=== PATIENT | male | born 1955 | race Caucasian/White ===

== ENCOUNTER 2017-08-15 19:37 | Emergency (ER) | payer BC ==
[~2017-08-15] VITALS: Ht 188 cm; Wt 102.1 kg
--- NOTE | 2017-08-15 21:05 | [facility]gent [facility] Report ---
History of Present Issue Date/Time Seen by Provider 08/15/172104 Visit Reason Pt arrived:Walked Presenting Problem:COUGH, CONGESTION BEGAN LAST NIGHT, STATES HE HAS BRONCHITIS Location if Accident: Onset of symptoms date/time:/ or onset unknown for:MEDICAL HX UNKNOWN Have you (or family members/close friends) recently traveled outside the [place]? N If Yes, where/when: Have you had exposure to infectious disease within the past month? TB? Other? Specify: Patient state that he has been complaining of cough, congestion, sinus pain and pressure State that he ususally gets bronchitis every year State that this feels more like the beginging of the bronchitis or sinus infection State that he feels tender in his sinuses and feels like they area draining down the back of his throat and got his throat sore and irritated State that he has a dry cough and having body aches Denies fever ALLERGIES Coded Allergies: No Known Allergies (08/15/17) History Medical History General CAD? No Angina: No LA: No Hypertension? No Hyperlipidemia? Yes CHF? No DVT? No PE? No COPD? No Asthma? No Anemia? No CVA? Yes UTI? No Stones? No BPH? No GB Disease: No MRSA? No HIV? No TB? No Immunization HX DT/Tetanus Unknown Surgical Hx Previous Surgery?N Social History Smoking Hx Smoker: Never Smoker Tobacco: No Alcohol Alcohol: No Review of Systems All Other Systems Reviewed and Negative Constitutional chills, denies fever ENT nose congestion, throat pain. denies: ear pain. Respiratory cough, denies shortness of breath, denies wheezing Cardiovascular denies no symptoms reported Musculoskeletal other (body aches) Psychiatric/Neurological headache Physical Exam Vital Signs Vital Signs Date Time Temp Pulse Resp B/P Pulse O2 O2 Flow FiO2 Ox Delivery Rate 08/15 2023 98.0 74 20 167/78 95 General Appearance normal appearance, WD/WN, no apparent distress Ear, Nose, Throat sinus pain/drainage, nasal congestion, Throat red, irritated drainage noted in back of throat, tenderness noted maxillary sinuses Respiratory Status Yes: trachea midline, chest symmetrical, non tender chest. No: respiratory distress. Cardiovascular normal exam, regular rate/rhythm, no peripheral edema Neurologic alert, normal exam, oriented x 3 Medical Decision Making LABS/Meds/Orders Pt receiving controlled substance in ED? No Results/Orders Current Medication Orders Sig/Cameron Start time Last Medication Dose Route Stop Time Status Admin Azithromycin 500 MG ONCE ONE 08/15 2115 DC PO 08/15 2116 Prednisone 20 MG ONCE ONE 08/15 2115 DC PO 08/15 2116 Departure Departure Time of Disposition 2114 Disposition DC Home or Self Care(routine) Clinical Impression Primary Impression: Upper respiratory infection Qualifiers: URI type: unspecified URI Qualified Code: J06.9 - Acute upper respiratory infection, unspecified Condition STABLE Referrals Devendra BOWEN,Chip (Family): 3 Days-Call Office if no improvement Patient Instructions DI for Sinus Headache, DI for Sinusitis, Sinus Headache, Sore Throat Additional Instructions * Monitor Temp. Tylenol and/or Ibuprofen as needed. ER if fever is no less than 101 despite alternating Tylenol and Ibuprofen * Encourage fluids, water, Gatorade, powerade, pedialyte if infant/toddler/or child * Warm salt water gargles for throat irritation *Warm fluids *Sore throat lozenges *Sleep elevated *humidifier or vaporizer Lots of rest Increase fluids, water, Gatorade, powerade *Flonase 2 sprays each nostril daily but may take 2-3 days to notice improvement with it *Bromfed may cause drowsiness. Know how it effect you or your child. Before driving, caring for small children or sending your child to school *Your throat swab was sent to lab for culture. Those results area typically sent to your primary care physician. Be sure to follow up in 2-3 days if no improvement so they can review those results and treat if necessary If you dont have primary care I recommend you get one, but in the mean time you will have to return to a walk in clinic Follow up IMMEDIATELY for new or worsening of symptoms OR no noticeable improvement over the next 48-72 hours. 911 immediately for any life threatening symptoms such as chest pain or difficulty breathing Discharge Counseling Counseled pt/family regarding diagnosis, medications/RX, home care, follow up needs Prescriptions Current Visit Scripts Azithromycin (Zithromycin (Z-CARRIE) 250MG Tab) 250 MG PO DAILY #6 TAB TAKE TWO (2) TABLETS ON DAY 1, THEN ONE (1) TABLET DAY #2 THRU #5 Benzonatate (Tessalon Perle) 100 MG PO TID #15 SGL Prednisone (Prednisone 20MG) 20 MG PO BID #10 TAB Fluticasone Propionate (Flonase 50 Mcg Nasal [place]) 2 SPRAY NA DAILY #1 BOT Albuterol Sulfate (Proair Hfa) 2 PUFFS IH QID #1 INH at 2120
[2017-08-15] MEDS ORDERED: TESSALON PERLE100 M1 PO (21:20)
[2017-08-15] MEDS ORDERED: FLONASE 50 MCG16 GM (21:20)
[2017-08-15] MEDS ORDERED: ZITHROMAX Z PA250 MG PO (21:20)
[2017-08-15] MEDS ORDERED: PROAIR HFA0.09 MG/AC IH (21:20)
[2017-08-15] MEDS ORDERED: PREDNISONE 20MG20 MG PO (21:20)
[2017-08-15 21:28] VITALS: BP 162/88
== END 2017-08-15 21:29 | disposition home or self-care (01) ==
LOC: UTC 19:37
DX: J06.9 Acute upper respiratory infection, unspecified (principal)